=== PATIENT | female | born 1990 | race Caucasian/White ===

== ENCOUNTER 2017-10-20 20:46 | Outpatient (CLI) | END 2017-10-20 22:45 | disposition home or self-care (01) ==

== ENCOUNTER 2018-01-12 12:45 | Outpatient (CLI) | END 2018-01-12 16:55 | disposition home or self-care (01) ==

== ENCOUNTER 2018-02-07 08:20 | Inpatient (IN) | END 2018-02-10 15:20 | disposition home or self-care (01) | DRG 807 ==